=== PATIENT | female | born 1975 | race Caucasian/White ===

== ENCOUNTER 2022-10-15 10:03 | Inpatient (IN) ==
--- NOTE | 2022-09-24 14:22 | PAT Medication Instructions ---
Medication Instructions Date of Service September 24, 2022 Home Medications Bacillus coagulans 1 billion cell chewable tablet (Probiotic (B. coagulans)) 1 cell PO QAM celecoxib 200 mg capsule (Celebrex) 200 mg PO QAM cholecalciferol (vitamin D3) 125 mcg (5,000 unit) tablet (Vitamin D3) 125 mcg PO QAM fiber 1 cap PO QPM gabapentin 600 mg tablet 600 mg PO BID lisinopril 20 mg-hydrochlorothiazide 12.5 mg tablet 1 tab PO HS multivitamin 0.5 tab PO BID turmeric 400 mg capsule 400 mg PO QPM vitamin B complex 1 cap PO QAM ASK your surgeon for instructions celecoxib 200 mg capsule (Celebrex) 200 mg PO QAM STOP taking 2 weeks before surgery (or as soon as possible if surgery is within 2 weeks) turmeric 400 mg capsule 400 mg PO QPM DO NOT take the morning of surgery Bacillus coagulans 1 billion cell chewable tablet (Probiotic (B. coagulans)) 1 cell PO QAM cholecalciferol (vitamin D3) 125 mcg (5,000 unit) tablet (Vitamin D3) 125 mcg PO QAM multivitamin 0.5 tab PO BID vitamin B complex 1 cap PO QAM Take morning of surgery With a small sip of water, OTHERWISE NOTHING TO EAT OR DRINK AFTER MIDNIGHT: gabapentin 600 mg tablet 600 mg PO BID Take evening before surgery fiber 1 cap PO QPM gabapentin 600 mg tablet 600 mg PO BID lisinopril 20 mg-hydrochlorothiazide 12.5 mg tablet 1 tab PO HS multivitamin 0.5 tab PO BID Other Notes If you have any questions please call us at [phone] or [phone] or [phone] or [phone]
--- NOTE | 2022-10-01 11:10 | Anesthesiology Consultation ---
Date of Service October 01, 2022 Assessment & Plan (1) Encounter for pre-operative examination: - Covid screening: Per hearing specialist on 10/01/22: No known infectious disease contacts or current infectious disease symptoms in past 10 days. No COVID positive test result in the past 90 days noted. - Outpatient joint assessment: Pt currently scheduled for inpatient pathway. If surgeon requests review for outpatient joint pathway, patient is an acceptable candidate for outpatient joint program from anesthesia standpoint pending surgeon's office assessment that patient is motivated, has good support and completes Same Day Joint Program preop requirements. Chart Review Chart Review: Acceptable Risk for Surgery and Patient seen in Pre Admission Testing Teaching & Discussion Pre-Anesthesia Teaching/Discussion Notes: Instructed NPO after midnight before surgery,except medications with 15 cc of water. Medication instructions provided according to the PAT guidelines. History Surgery Operation Date: 10/15/22 07:45 Proposed Procedures p L4-S1 Decompression and Fusion - Larui Yang, Height/Weight Height: 5 ft 4.5 in Weight: 97.6 kg Allergies Allergy/AdvReac Type Severity Reaction Status Date / Time No Known Allergies Allergy Verified 09/24/22 08:15 Medications Home Medications Medication Instructions Recorded Confirmed Last Taken Bacillus coagulans 1 billion cell 1 cell PO QAM 09/24/22 09/24/22 Unknown chewable tablet (Probiotic (B. coagulans)) celecoxib 200 mg capsule (Celebrex) 200 mg PO QAM 09/24/22 09/24/22 Unknown cholecalciferol (vitamin D3) 125 125 mcg PO QAM 09/24/22 09/24/22 Unknown mcg (5,000 unit) tablet (Vitamin D3) fiber 1 cap PO QPM 09/24/22 09/24/22 Unknown gabapentin 600 mg tablet 600 mg PO BID 09/24/22 09/24/22 Unknown lisinopril 20 1 tab PO HS 09/24/22 09/24/22 Unknown mg-hydrochlorothiazide 12.5 mg tablet multivitamin 0.5 tab PO BID 09/24/22 09/24/22 Unknown turmeric 400 mg capsule 400 mg PO QPM 09/24/22 09/24/22 Unknown vitamin B complex 1 cap PO QAM 09/24/22 09/24/22 Unknown Past Medical History Medical History Arthritis Hearing deficit History of COVID-19 x2 Most recent 03/2021; symptoms resolved History of depression Hypertension Spinal stenosis Exercise / Class Metabolic Activity II 4-5 Yardwork/Stairs/Walk up hill Past Family History Family History Other No family history of adverse response to anesthesia Past Surgical History Surgical History H/O foot surgery left History of adenoidectomy History of bilateral tubal ligation History of ear surgery left ear "hole repaired" History of esophagogastroduodenoscopy (EGD) History of hysteroscopy [place] teeth removed Past Anesthesia History No Hx of Anesthesia Complications and No Family Hx of Anesthesia Complications History of PONV No Hx of PONV and No Hx of Motion Sickness Social History Smoking Status: Never smoker Do You Dip or Chew Tobacco: No Hx Alcohol Use: Yes Alcohol type: beer alcohol intake frequency: a few times a month substance use type: does not use Review of Systems Patient denies chest pain, shortness of breath, dyspnea on exertion, fever, chills, cough, wheezing, palpitations. Physical Exam Vital Signs VITALS BP 126/85 P 63 TEMP 97.7 SP02 99%RA RESP 18 PHYSICAL Full cervical extension range of motion. Full TMJ range of motion. TMD 3.5 finger breaths Mallampati Score 1 Dentition: intact, + crown Lungs: clear throughout to auscultation Cardiac: regular rate and rhythm, no murmurs noted Spine: normal Carotid arteries: negative bruit Extremities: no LE edema Lab Results Anesthesia Preop Results Results Anesthesia Widget: WBC 6.58 K/ul (4.8-10.8) 10/01/22 Hgb 13.2 g/dl (12.0-16.0) 10/01/22 Hct 37.3 % (37.0-47.0) 10/01/22 Plt 266 K/uL (130-400) 10/01/22 Na 140 mmol/L (136-145) 10/01/22 K 3.6 mmol/L (3.5-5.1) 10/01/22 Cl 107 mmol/L (98-107) 10/01/22 CO2 26 mmol/L (21-32) 10/01/22 BUN 13 mg/dl (6-23) 10/01/22 Creat 0.61 mg/dl (0.6-1.2) 10/01/22 Glucose Level 73 mg/dl (70-99(Fasting)) 10/01/22 PT 10.4 Seconds (9.0-12.0) 10/01/22 PTT 25.6 Seconds (21.0-31.0) 10/01/22 INR 0.9 (0.9-1.1) 10/01/22 Urine Color Dark Yellow 10/01/22 Urine Appearance Clear (Clear) 10/01/22 Urine pH 6.0 (4.5-7.5) 10/01/22 Urine Specific [place] 1.011 (1.000-1.030) 10/01/22 Urine Protein Negative (Negative) 10/01/22 Urine Glucose (UA) Negative (Negative) 10/01/22 Urine Ketones Negative (Negative) 10/01/22 Urine Blood 1+ (Negative) H 10/01/22 Urine Nitrite Negative (Negative) 10/01/22 Urine Bilirubin Negative (Negative) 10/01/22 Urine Urobilinogen Negative (Negative) 10/01/22 Urine Leukocyte Esterase Negative (Negative) 10/01/22 Urine WBC (Auto) 0 /hpf (0-5) 10/01/22 Urine RBC (Auto) 5-10 /hpf (0-4) H 10/01/22 Urine Hyaline Casts (Auto) 0 /lpf (0-5) 10/01/22 Urine Epithelial Cells (Auto) 5-10 /lpf (0-5) H 10/01/22 Urine Bacteria (Auto) Negative (Negative) 10/01/22 Blood Type A Positive 10/01/22 Antibody Screen NEGATIVE 10/01/22 Testing Electrocardiogram Date: 10/01/22 SB at 54bpm. "Normal ECG" Chest X-Ray Date: 10/01/22 FINDINGS: PA and lateral chest radiographs are obtained. No prior studies are available for comparison at the time of dictation. The cardiomediastinal silhouette is unremarkable. The lungs and pleural spaces are clear. There is no pneumothorax. The bony thorax appears intact. IMPRESSION: No active disease in the chest.
[~2022-10-15 10:03] MED LIST: ACETAMINOPHEN 500 MG TAB PO SCH; CeleBREX 200 MG CAP PO SCH; DexMEDEtomidine HCL IV 100 MCG/ML VIAL IV ONE; GABAPENTIN 900 MG DOSE PO SCH; LR 15ML/HR IV SCH; LR 60ML/HR IV SCH; ceFAZolin 2000MG 2,000 MG/15 ML SYR IV SCH
[2022-10-15] MEDS ORDERED: KETAMINE 50 MG/5 ML SYRINGE ONE (10:31)
[2022-10-15] MEDS ORDERED: fentaNYL citrate PF 100 MCG/2 ML VIAL ONE (10:31)
[2022-10-15] MEDS ORDERED: MIDAZOLAM HCL 1 MG/ML 2ML VIAL ONE (10:31)
[2022-10-15] MEDS ORDERED: ePHEDrine sulfate 50 MG/ML AMP IV PRN (10:55)
[2022-10-15] MEDS ORDERED: ATROPINE SULFATE 0.1 MG/ML 10ML SYR IV PRN (10:55)
[2022-10-15] MEDS ORDERED: ONDANSETRON INJ 2 MG/ML 2 ML VIAL IV PRN ×2 (10:55→16:20)
--- NOTE | 2022-10-15 11:54 | History & Physical Bridge Note ---
Date of Service October 15, 2022 History & Physical Bridge Note I have examined the patient, reviewed the History & Physical and in the interval since the performance of the History & Physical I have noted the following changes of clinical significance: no changes noted
--- NOTE | 2022-10-15 11:56 | History & Physical Report ---
Date of Service October 15, 2022 Assessment & Plan (1) Neurogenic claudication due to lumbar spinal stenosis: Plan: L4-S1 decompression and fusion History of Present Illness Chief Complaint: Back and leg pain Primary Care Provider: Evangelina Butts This is a 46-year-old female presents with chronic persistent back and leg pain after failing course of nonoperative care she is here for surgical invention. Allergies Allergy/AdvReac Type Severity Reaction Status Date / Time No Known Allergies Allergy Verified 10/15/22 10:26 Home Medications Medication Instructions Recorded Confirmed Type Bacillus coagulans 1 billion cell 1 cell PO QAM 09/24/22 10/15/22 History chewable tablet (Probiotic (B. coagulans)) celecoxib 200 mg capsule (Celebrex) 200 mg PO QAM 09/24/22 10/15/22 History cholecalciferol (vitamin D3) 125 125 mcg PO QAM 09/24/22 10/15/22 History mcg (5,000 unit) tablet (Vitamin D3) fiber 1 cap PO QPM 09/24/22 10/15/22 History gabapentin 600 mg tablet 600 mg PO BID 09/24/22 10/15/22 History lisinopril 20 1 tab PO HS 09/24/22 10/15/22 History mg-hydrochlorothiazide 12.5 mg tablet multivitamin 0.5 tab PO BID 09/24/22 10/15/22 History turmeric 400 mg capsule 400 mg PO QPM 09/24/22 10/15/22 History vitamin B complex 1 cap PO QAM 09/24/22 10/15/22 History Past Med/Surg History Medical History Arthritis Hearing deficit History of COVID-19 x2 Most recent 03/2021; symptoms resolved History of depression Hypertension Spinal stenosis Surgical History H/O foot surgery left History of adenoidectomy History of bilateral tubal ligation History of ear surgery left ear "hole repaired" History of esophagogastroduodenoscopy (EGD) History of hysteroscopy [place] teeth removed Family History Other No family history of adverse response to anesthesia Social History Smoking Status: Never smoker Second Hand Exposure: No; Do You Dip or Chew Tobacco: No; Hx Alcohol Use: Yes Alcohol type: beer Preferred Language: French Nurse Head Required: No Beliefs That Will Affect Care: None Current Living Situation: Family Current Living Situation Comment: boyfriend and 3 children Feels Safe at Home: Yes Safety Concerns: Feels Safe At This Time Assistive Devices: Contacts, Glasses and Hearing Aid - Bilateral Assistive Devices Comment: reading glasses Physical Exam Physical Exam: Patient is alert and oriented Heart regular rhythm Lungs clear Results & Data Results & Data Vital Signs (Past 12 Hours) Vital Signs Temp Pulse Resp BP Pulse Ox O2 Del Method 10/15/22 10:21 36.5 C 69 20 152/79 H 95 Room Air
[2022-10-15] MEDS ORDERED: ceFAZolin 330 MG/ML 1 GM VIAL ONE (12:14)
[2022-10-15] MEDS ORDERED: BUPIVACAINE/EPINEPHRINE 0.25% 1:200,000 30 ML VIAL ONE (12:14)
[2022-10-15] MEDS ORDERED: HYDROmorphone INJ 2 MG/ML SYR/VIAL ONE (13:00)
[2022-10-15] MEDS ORDERED: ROCURONIUM BROMIDE 10 MG/ML 5 ML VIAL IV ONE (13:02)
[2022-10-15] MEDS ORDERED: FLOSEAL HEMOSTATIC MATRIX 10ML TOP ONE (13:22)
[2022-10-15] MEDS ORDERED: ePHEDrine sulfate 50 MG/ML SYR ONE (14:06)
[2022-10-15] MEDS ORDERED: ePHEDrine sulfate 50 MG/ML AMP ONE (14:08)
[2022-10-15] MEDS ORDERED: DEXAMETHASONE SOD INJ 4 MG/ML VIAL ONE (14:23)
[2022-10-15] MEDS ORDERED: ONDANSETRON INJ 2 MG/ML 2 ML VIAL ONE (14:23)
[2022-10-15] MEDS ORDERED: SUGAMMADEX SODIUM 200 MG/2 ML VIAL IV ONE (14:23)
--- NOTE | 2022-10-15 14:42 | Operative Report ---
Post Operative Report Pre & Post Diagnosis Operation Date: 10/15/22 11:25 Pre-Op Diagnosis: Neurogenic claudication due to lumbar spinal stenosis Post-Op Diagnosis: Neurogenic claudication due to lumbar spinal stenosis I identified the patient and participated in the time-out.: Yes Procedure Operation Date: 10/15/22 11:25 Actual Procedures 1. Lumbar decompression bilaterally facetectomies and foraminotomies L3-L4, L4- 5 and L5-S1. #2 posterior spinal fusion L4-5 L5-S1. #3 placed posterior instrumentation L4-S1. #4 interbody fusion L4-L5 L5-S1. #5 placement Spira 14 x 26 mm at L4-5 and 13 x 26 mm at L5-S1. #6 placement locally harvested morselized autograft and posterior gutters. #7 placement of I factor amount of V toss in the interbody space and posterior gutters. Surgeon Lauri Yang, Bulldozer Engineer Jono Perez Estimated Blood Loss 200 ([) Findings See Below Patient is 5 foot 4 weighing over 96 kg with a BMI in excess of 35. Patient's body habitus did contribute to significant technical difficulty requiring her deeper retractors longer instruments in order to perform her procedure. This at least 50% increased operative time. Specimens none Indications This is a 47-year-old female presents above-mentioned diagnosis after failed course of nonoperative care she is here for surgical intervention. Description of Procedure Patient was met with identified informed consent obtained. Patient was then taken to the operative suite underwent patient placed in a prone position on the [place] table top Bucky frame. All bony prominences well-padded eyes inspected to ensure no external pressure placed upon the. This point the lumbar spine was prepped and draped in a sterile fashion. Sharp dissection with assistance of Bovie cautery performed down to expose the lamina transverse processes of L4-L5 and the sacral ala bilaterally. From caudal cephalad fashion complete laminectomy L5 L4 partial laminectomy of L3 was performed including bilateral medial facetectomies and foraminotomies addressing severe spinal stenosis. Pedicle screws were then placed in L4-L5 and S1 levels bilaterally with assistance of fluoroscopy and properly sized eamon placed. By way of a transforaminal approach on the left complete discectomy of L5-S1 was performed endplates curetted to subcortical bleeding bone and a 13 x 26 mm Spira cage with I factor tapped in position. Then proceeded L4-5 and again by a transforaminal approach on the left pleat discectomy performed endplates guided to subcortically bone and a 14 x 26 mm Spira cage with I factor tapped in position. The rods then compressed locked in position bilaterally. The transverse processes of L4-5 and sacral ala burred to subcortically and bone. I factor combined with the test and locally harvested morselized autograft was then placed in the posterior gutters. 15 round DEXTER drain inserted. The incision was then closed with 1 Vicryl the fascia 2-0 Vicryl subcutaneously and 4 Monocryl for final skin closure. Steri-Strips and sterile dressing placed. Patient waken taken to PACU stable condition. Please note spinal cord monitoring was utilized at the procedure no changes noted. Lastly Jono Perez was present at the entire surgery and while the patient positioning complex portion of the surgery and final skin closure. I attest to the content of the Intraoperative Record and any orders documented therein. Any exceptions are noted below.
--- NOTE | 2022-10-15 14:49 | Fluoroscopy Report ---
INTRAOPERATIVE RADIOGRAPHS CLINICAL HISTORY: L4-S1 spinal fusion. Fluoro time: 30 seconds Ka,r: 29.07 mGy FINDINGS: 2 spot fluoroscopic views of the lumbar spine are presented. There has been discectomy at L 4-L5 and L5-S1 with laminectomy and posterior fusion from L4-S1. Interpedicular screws are present at all levels. The orthopedic hardware appears intact. IMPRESSION: Intraoperative images from lumbar spinal fusion surgery as above. Electronically signed by: Tre Vidales M.D. 10/15/2022 2:47 PM
[2022-10-15] MEDS: HYDROmorphone INJ 1 MG/ML SYRINGE IV PRN ×6 (15:17→15:44)
--- NOTE | 2022-10-15 16:03 | Anesthesiology Progress Note ---
Date of Service October 15, 2022 Anesthesia Post Procedure Vital Signs Vital Signs: Temp Pulse Pulse Resp BP Pulse Ox O2 Del Method 10/15/22 15:55 75 16 110/66 98 Nasal Cannula 10/15/22 15:45 77 14 113/64 99 Nasal Cannula 10/15/22 15:35 74 14 113/65 98 Room Air 10/15/22 15:25 73 14 121/83 100 Oxymask 10/15/22 15:15 78 16 107/71 100 Oxymask 10/15/22 15:06 97.7 F 87 14 108/70 100 Oxymask 10/15/22 10:21 97.7 F 69 20 152/79 H 95 Room Air O2 Flow Rate 10/15/22 15:55 2 10/15/22 15:45 2 10/15/22 15:35 10/15/22 15:25 3 10/15/22 15:15 3 10/15/22 15:06 5 10/15/22 10:21 Pain Intensity Back: Pain Intensity: 5 Transfer of Care Handoff Completed per policy Notes Mental Status: alert / awake / arousable and participated in evaluation Patient Amnestic to Procedure: Yes Nausea / Vomiting: adequately controlled Pain: adequately controlled Airway Patency, RR, SpO2: stable & adequate BP & HR: stable & adequate Hydration State: stable & adequate Anesthetic Complications: no major complications apparent and Pt Satisfied with anesthetic care
[2022-10-15] MEDS ORDERED: HYDROmorphone INJ 1 MG/ML SYRINGE IV PRN (16:20)
[2022-10-15] MEDS ORDERED: DO NOT ADMINISTER FLU VACCINE PRN (16:20)
[2022-10-15] MEDS ORDERED: traMADol HCL 50 MG TABLET PO PRN (16:20)
[2022-10-15] MEDS ORDERED: METOCLOPRAMIDE HCL INJ 5 MG/ML 2 ML VIAL IV PRN (16:20)
[2022-10-15] MEDS ORDERED: FAMOTIDINE 20 MG TAB PO PRN (16:20)
[2022-10-15] MEDS ORDERED: LORazepam 2 MG/1 ML VIAL IV PRN (16:20)
[2022-10-15] MEDS ORDERED: NALOXONE HCL 0.4 MG/1 ML VIAL/CARP IV PRN (16:20)
[2022-10-15] MEDS ORDERED: hydrOXYzine HCl 25 MG TAB PO PRN (16:20)
[2022-10-15] MEDS ORDERED: DO NOT ADMINISTER PNEUMOCOCCAL VACCINE PRN (16:20)
[2022-10-15] MEDS ORDERED: MAGNESIUM HYDROXIDE SUSP 30 ML UDC PO PRN (16:20)
[2022-10-15] MEDS ORDERED: ALUMINUM/MAGNESIUM SUSP 30 ML UDC PO PRN (16:20)
[2022-10-15] MEDS ORDERED: PROMETHAZINE HCL 12.5 MG in SODIUM CHLORIDE 0.9% 50 ML IV PRN (16:20)
[2022-10-15] MEDS ORDERED: ACETAMINOPHEN 1,000 MG/100 ML VIAL IV PRN (16:20)
[2022-10-15] MEDS ORDERED: ONDANSETRON 4 MG OD TAB PO PRN (16:20)
[2022-10-15] MEDS: LACTATED RINGER'S 1,000 ML IV SCH ×2 (16:20→23:30)
[2022-10-15] MEDS ORDERED: bisacodyL 10 MG SUPP PR PRN (16:20)
[2022-10-15] MEDS ORDERED: LORazepam 0.5 MG TAB PO PRN (16:20)
[2022-10-15] MEDS ORDERED: HYDROmorphone INJ 0.5 MG/0.5 ML SYR IV PRN (16:20)
[2022-10-15] MEDS ORDERED: SOD PHOSPHATE/SOD BIPHOSPHATE ENEMA 132 ML BTL PR PRN (16:20)
[2022-10-15] MEDS ORDERED: diphenhydrAMINE Capsule 25 MG CAP PO PRN (16:20)
--- NOTE | 2022-10-15 18:39 | Hospitalist Consultation ---
Date of Consultation October 15, 2022 Assessment & Plan (1) Neurogenic claudication due to lumbar spinal stenosis: POD#0 L4-S1 decompression and fusion by Dr. Yang Activity and wound care orders as per ortho Pain control with bowel regimen PT/OT Monitor H/H for acute blood loss anemia and transfuse blood products PRN, preop Hgb 13.2 EBL 200 cc (2) Hypertension: BP controlled, continue home lisinopril/HCTZ --check renal functions with a.m. labs, preop creatinine 0.6 DVT PROPHYLAXIS TEDs/SCDs as per spine Ortho Patient seen in collaboration with Dr. Wong. Thank you for this consultation. We will follow the patient with you during their hospital stay. You can reach a member of the [facility] 27/09 via the [facility] role in [employer]. Supervising Physician Co-Signing Physician Notes Pt seen and examined by myself, Page Wong MD on the day of service. Care was coordinated with KATELYNN Lynn. Please refer to her note for additional information. 47yoF s/p lumbar decompression and fusion with consult for chronic medical problems. Stable, pain controlled. Otherwise as above. History of Present Illness Reason for Consultation: Postop medical management Requesting Physician: Dr. Yang Attending Physician: Lauri Yang DO History of Present Illness 47-year-old female with PMH HTN, and other problems listed below who is s/p L4- S1 decompression and fusion by Dr. Yang. Postoperatively, the patient is doing well. She reports her pain is well controlled. She denies numbness, tingling, weakness to lower extremities. No chest pain or shortness of breath. Denies abdominal pain and nausea. No lightheadedness or dizziness. Del Cid catheter is in place draining clear yellow urine. Allergies Allergy/AdvReac Type Severity Reaction Status Date / Time No Known Allergies Allergy Verified 10/15/22 10:26 Home Medications Medication Instructions Recorded Confirmed Type Bacillus coagulans 1 billion cell 1 cell PO QAM 09/24/22 10/15/22 History chewable tablet (Probiotic (B. coagulans)) celecoxib 200 mg capsule (Celebrex) 200 mg PO QAM 09/24/22 10/15/22 History cholecalciferol (vitamin D3) 125 125 mcg PO QAM 09/24/22 10/15/22 History mcg (5,000 unit) tablet (Vitamin D3) fiber 1 cap PO QPM 09/24/22 10/15/22 History gabapentin 600 mg tablet 600 mg PO BID 09/24/22 10/15/22 History lisinopril 20 1 tab PO HS 09/24/22 10/15/22 History mg-hydrochlorothiazide 12.5 mg tablet multivitamin 0.5 tab PO BID 09/24/22 10/15/22 History turmeric 400 mg capsule 400 mg PO QPM 09/24/22 10/15/22 History vitamin B complex 1 cap PO QAM 09/24/22 10/15/22 History oxycodone 5 mg tablet 5 mg PO Q6H PRN pain #30 tabs 10/15/22 Rx tramadol 50 mg tablet 50 mg PO Q6H PRN pain, moderate 10/15/22 Rx #30 tabs Patient History Medical History Arthritis Hearing deficit History of COVID-19 x2 Most recent 03/2021; symptoms resolved History of depression Hypertension Spinal stenosis Surgical History H/O foot surgery left History of adenoidectomy History of bilateral tubal ligation History of ear surgery left ear "hole repaired" History of esophagogastroduodenoscopy (EGD) History of hysteroscopy [place] teeth removed Family History Other No family history of adverse response to anesthesia Social History Smoking Status: Never smoker Second Hand Exposure: No; Do You Dip or Chew Tobacco: No; Hx Alcohol Use: Yes Alcohol type: beer Preferred Language: Divehi Keeler Polygraph Operator Required: No Beliefs That Will Affect Care: None Current Living Situation: Family Current Living Situation Comment: boyfriend and 3 children Feels Safe at Home: Yes Safety Concerns: Feels Safe At This Time Assistive Devices: Contacts, Glasses and Hearing Aid - Bilateral Assistive Devices Comment: reading glasses Review of Systems Review of Systems: ROS per HPI, all other systems reviewed and negative Physical Exam Constitutional: WD/WN, vitals as above Eyes: PERRL, conjunctivae normal, anicteric sclerae ENMT: external ear and nose normal, oropharynx normal Respiratory: normal respiratory effort, lungs clear to auscultation Cardiovascular: Rate/Rhythm: regular rate and regular rhythm Vessels: normal peripheral pulses Extremities: no edema Gastrointestinal (Abdomen): normal bowel sounds, soft, nontender, no hepatospl enomegaly Musculoskeletal: no cyanosis or clubbing, extremities motor strength 5/5 S/p back surgery, pedal pushes and pulls strong bilaterally Skin: no rashes, warm and dry Neurologic: PERRL, EOMI, accommodation nl, no face palsy, no dysarthria Psychiatric: A+Ox3, euthymic affect Results & Data Results & Data Vital Signs (Past 12 Hours) Vital Signs Temp Pulse Pulse Resp BP Pulse Ox O2 Del Method 10/15/22 18:11 36.4 C L 89 16 114/75 100 Nasal Cannula 10/15/22 17:27 36.4 C L 76 16 112/76 100 Nasal Cannula 10/15/22 16:50 36.3 C L 77 14 110/71 96 Nasal Cannula 10/15/22 16:15 Nasal Cannula 10/15/22 16:15 36.6 C 77 14 105/69 99 Nasal Cannula 10/15/22 16:05 73 14 117/70 100 Nasal Cannula 10/15/22 15:55 75 16 110/66 98 Nasal Cannula 10/15/22 15:45 77 14 113/64 99 Nasal Cannula 10/15/22 15:35 74 14 113/65 98 Room Air 10/15/22 15:25 73 14 121/83 100 Oxymask 10/15/22 15:15 78 16 107/71 100 Oxymask 10/15/22 15:06 36.5 C 87 14 108/70 100 Oxymask 10/15/22 10:21 36.5 C 69 20 152/79 H 95 Room Air O2 Flow Rate 10/15/22 18:11 2 10/15/22 17:27 2 10/15/22 16:50 2 10/15/22 16:15 2 10/15/22 16:15 2 10/15/22 16:05 2 10/15/22 15:55 2 10/15/22 15:45 2 10/15/22 15:35 10/15/22 15:25 3 10/15/22 15:15 3 10/15/22 15:06 5 10/15/22 10:21 Laboratory Results Preoperative CBC and BMP reviewed
[2022-10-15] MEDS: oxyCODONE HCL IR 5 MG TAB (IMMEDIATE RELEASE) PO PRN ×2 (18:53→23:30)
[2022-10-15] MEDS ORDERED: NON-FORMULARY MEDICATION (Fiber Capsule) PO SCH (21:00)
[2022-10-15] MEDS: ACETAMINOPHEN 500 MG TAB PO PRN (21:30)
[2022-10-15] MEDS: ceFAZolin 2000MG 2,000 MG/15 ML SYR IV SCH (21:31)
[2022-10-15] MEDS: GABAPENTIN 600 MG TAB PO SCH (21:34)
[2022-10-15] MEDS: LISINOPRIL/HCTZ 20/12.5MG 1 TAB TAB PO SCH (21:34)
[2022-10-15] MEDS: DOCUSATE SODIUM/SENNA 50/8.6MG TAB PO SCH (21:36)
[2022-10-16] MEDS: oxyCODONE HCL IR 5 MG TAB (IMMEDIATE RELEASE) PO PRN ×4 (04:35→21:11)
[2022-10-16] MEDS: ceFAZolin 2000MG 2,000 MG/15 ML SYR IV SCH (04:36)
[2022-10-16] MEDS: POLYETHYLENE (MIRALAX) 17 GM PACK PO SCH ×4 (05:26→23:08)
[2022-10-16] MEDS: LACTATED RINGER'S 1,000 ML IV SCH (05:38)
[2022-10-16 06:08] LABS: Basophils # (auto) 0.01 K/uL (0-0.2); Basophils % (auto) 0.1 %; Eosinophils # (auto) 0.02 K/uL (0-0.50); Eosinophils % (auto) 0.2 %; Hematocrit (blood only) 31.8 % (37.0-47.0); Hemoglobin 11.1 g/dl (12.0-16.0); Immature Granulocytes # (auto) 0.05 K/uL (0.01-0.20); Immature Granulocytes % (auto) 0.4 %; Lymphocytes # (auto) 2.27 K/uL (1.2-3.4); Lymphocytes % (auto) 19.8 %; Mean Corpuscular Hemoglobin 32.7 pg (25.0-34.0); Mean Corpuscular Hgb Conc 34.9 g/dL (32.0-36.0); Mean Corpuscular Volume 93.8 fL (80.0-100.0); Mean Platelet Volume 10.5 fL (9.4-12.4); Monocytes # (auto) 0.95 K/uL (0.11-0.59); Monocytes % (auto) 8.3 %; Neutrophils # (auto) 8.16 K/uL (1.40-6.50); Neutrophils % (auto) 71.2 %; Platelet Count 252 K/uL (130-400); RDW Coefficient of Variation 12.1 % (11.5-14.5); RDW Standard Deviation 42.1 fL (36.4-46.3); Red Blood Count 3.39 M/uL (4.20-5.40); White Blood Count 11.46 K/ul (4.8-10.8)
[2022-10-16 06:27] LABS: BUN Creatinine Ratio 14.3 (10-20); Calcium 8.9 mg/dl (8.6-10.3); Creatinine Clr Calc Pharmacy 144.3 ml/min; Est GFR (African American) 130.5 ml/min; Est GFR (Non-African American) 112.6 ml/min; Potassium 3.8 mmol/L (3.5-5.1)
--- NOTE | 2022-10-16 07:32 | Orthopedic Progress Note ---
Date of Service October 16, 2022 Assessment & Plan (1) Neurogenic claudication due to lumbar spinal stenosis: Plan: Patient is doing well postoperative day #1. Were going to continue with GI DVT prophylaxis as well as pain control measures. We can have her ambulate with physical therapy today. All goes well today and her drainage slows down we would consider letting her go home tomorrow. Admission and Anticipated Discharge Date Admission Date: October 15, 2022 Subjective Patient seen bedside in room 309. She is doing well today. Her pain is well controlled. She is not having any joan radicular complaints she has not had a bowel movement. She has been up and walking. She denies any other numbness, tingling, or paresthesias. Physical Exam Physical Exam: On exam she is alert and oriented. She is in no apparent distress. Her st rength and sensation are both intact her abdomen soft and nontender. Her calves are supple and nontender. Cardiovascular exam reveals no gross abnormalities. Visual perry are grossly intact. Results & Data Vital Signs (Past 12 Hours) Vital Signs Temp Pulse Resp BP Pulse Ox O2 Del Method 10/16/22 07:27 36.9 C 93 H 18 112/69 96 Room Air 10/16/22 03:42 36.7 C 84 18 116/60 98 Room Air 10/15/22 21:30 Room Air 10/15/22 23:07 36.8 C 88 18 118/71 96 Room Air 10/15/22 21:14 79 107/70
[2022-10-16] MEDS: VITAMIN B COMPLEX TAB PO SCH (08:48)
[2022-10-16] MEDS: MULTIVITAMIN TAB PO SCH (08:48)
[2022-10-16] MEDS: CHOLECALCIFEROL 5,000 UNITS 125 MCG TAB PO SCH (08:48)
[2022-10-16] MEDS: GABAPENTIN 600 MG TAB PO SCH ×2 (08:48→19:46)
[2022-10-16] MEDS: dexAMETHasone 6 MG in SYRINGE 0 ML IV SCH (08:49)
[2022-10-16] MEDS: ACETAMINOPHEN 500 MG TAB PO PRN (10:21)
--- NOTE | 2022-10-16 14:46 | Hospitalist Progress Note ---
Date of Service October 16, 2022 Assessment & Plan (1) Neurogenic claudication due to lumbar spinal stenosis: Plan: POD#1 L4-S1 decompression and fusion by Dr. Yang Activity and wound care orders as per ortho Pain control with bowel regimen PT/OT Monitor H/H for acute blood loss anemia and transfuse blood products PRN, preop Hgb 13.2 EBL 200 cc (2) Hypertension: Plan: BP controlled, continue home lisinopril/HCTZ . DVT PROPHYLAXIS TEDs/SCDs as per spine Ortho Admission and Anticipated Discharge Date Admission Date: October 15, 2022 Subjective Patient seen and examined at bedside as a follow-up of medical management for sp inal surgery for neurogenic claudication due to spinal stenosis. Patient was sitting up in chair, on room air, NAD, reports improvement in LLE radicular pain, reports bearable operative site pain, reports eating okay, has normal bowel, is moving gas, denies any other problems. Physical Exam Physical Exam: GENERAL: Alert and oriented x3. NAD, on RA. HEENT: No pallor, no icterus. Pupils equal, round and reactive to light. Oral mucosa moist. NECK: No JVD, no neck masses. HEART: S1 and S2 heard. Regular rate and rhythm. No murmur, no gallop. RESPIRATORY SYSTEM: Normal AP diameter. No accessory muscle use. No wheezing, no crackles. ABDOMEN: Soft, bowel sounds present, nontender, no distention. CENTRAL NERVOUS SYSTEM: No facial droop. Speech is clear. Obeys simple commands. Moves extremities. EXTREMITIES: No edema, no erythema seen. Low back with clean dressing without soakage. DEXTER drain with moderate serosanguineous collection noted. Results & Data Results & Data Vital Signs (Past 12 Hours) Vital Signs Temp Pulse Resp BP Pulse Ox O2 Del Method 10/16/22 11:55 96 10/16/22 07:27 36.9 C 93 H 18 112/69 96 Room Air 10/16/22 03:42 36.7 C 84 18 116/60 98 Room Air
[2022-10-16] MEDS: LISINOPRIL/HCTZ 20/12.5MG 1 TAB TAB PO SCH (19:47)
[2022-10-16] MEDS: DOCUSATE SODIUM/SENNA 50/8.6MG TAB PO SCH (19:47)
[2022-10-17] MEDS: oxyCODONE HCL IR 5 MG TAB (IMMEDIATE RELEASE) PO PRN ×4 (04:22→22:34)
[2022-10-17] MEDS: POLYETHYLENE (MIRALAX) 17 GM PACK PO SCH ×3 (04:23→17:39)
[2022-10-17 06:00] LABS: Hemoglobin 11.2 g/dl (12.0-16.0); Mean Corpuscular Hemoglobin 33.5 pg (25.0-34.0); Mean Corpuscular Volume 95.8 fL (80.0-100.0); Mean Platelet Volume 10.2 fL (9.4-12.4); Platelet Count 220 K/uL (130-400); RDW Coefficient of Variation 12.6 % (11.5-14.5); RDW Standard Deviation 43.8 fL (36.4-46.3); Red Blood Count 3.34 M/uL (4.20-5.40); White Blood Count 11.14 K/ul (4.8-10.8)
--- NOTE | 2022-10-17 07:17 | Orthopedic Progress Note ---
Date of Service October 17, 2022 Assessment & Plan (1) Neurogenic claudication due to lumbar spinal stenosis: Plan: Patient is doing well postop day #2. She did have some issues with her blood pressure yesterday. Like to keep her today and make sure her drainage slows down. We will continue with hydration measures. If she continues to get lightheaded orthostatic blood pressures would be reasonable. We will see her tomorrow and hopefully discharge her to home. Admission and Anticipated Discharge Date Admission Date: October 15, 2022 Subjective Patient was seen bedside in room 309. She is doing well today. She had issues yesterday with her blood pressure. When she went to stand with physical therapy she got lightheaded. She is doing better this morning. She is tolerating p.o. well. She denies any other numbness, tingling, paresthesias Physical Exam Physical Exam: On exam the patient is alert and oriented. Her strength and sensation are both intact her DEXTER drain is in place and she has put out 60 on the last shift 45 on the previous. Her abdomen soft nontender calves are supple nontender cardiovascular exam reveals no gross abnormalities. Her gait is stable. Results & Data Vital Signs (Past 12 Hours) Vital Signs Temp Pulse Resp BP Pulse Ox O2 Del Method 10/17/22 06:57 36.8 C 80 18 106/71 98 Room Air 10/16/22 19:41 36.7 C 88 18 121/80 98 Room Air
[2022-10-17] MEDS: ACETAMINOPHEN 500 MG TAB PO PRN ×2 (07:47→17:39)
[2022-10-17] MEDS: VITAMIN B COMPLEX TAB PO SCH (08:29)
[2022-10-17] MEDS: CHOLECALCIFEROL 5,000 UNITS 125 MCG TAB PO SCH (08:29)
[2022-10-17] MEDS: MULTIVITAMIN TAB PO SCH (08:29)
[2022-10-17] MEDS: dexAMETHasone 6 MG in SYRINGE 0 ML IV SCH (08:29)
[2022-10-17] MEDS: GABAPENTIN 600 MG TAB PO SCH ×2 (08:29→22:34)
--- NOTE | 2022-10-17 12:53 | Hospitalist Progress Note ---
Date of Service October 17, 2022 Assessment & Plan (1) Neurogenic claudication due to lumbar spinal stenosis: Plan: POD#2 L4-S1 decompression and fusion by Dr. Yang Activity and wound care orders as per ortho Pain control with bowel regimen PT/OT Monitor H/H for acute blood loss anemia and transfuse blood products PRN, preop Hgb 13.2 EBL 200 cc (2) Hypertension: Plan: BP controlled, continue home lisinopril/hold HCTZ for few days. Low normal BP here. DVT PROPHYLAXIS TEDs/SCDs as per spine Ortho Admission and Anticipated Discharge Date Admission Date: October 15, 2022 Subjective Patient seen and examined at bedside as a follow-up of medical management for spinal surgery for neurogenic claudication due to spinal stenosis. Patient was sitting up in chair, on room air, NAD, reports improvement in LLE radicular pain, reports bearable operative site pain, reports eating okay, has not moved bowel, is moving gas, denies any other problems. While working w/ PT yesterday, pt was transiently lightheaded which improved w/ gatorade. Can use pedialyte solution which might me more effective. Ortho vitals obtained today are negative. Pt has no further such complaints today. Physical Exam Physical Exam: GENERAL: Alert and oriented x3. NAD, on RA. HEENT: No pallor, no icterus. Pupils equal, round and reactive to light. Oral mucosa moist. NECK: No JVD, no neck masses. HEART: S1 and S2 heard. Regular rate and rhythm. No murmur, no gallop. RESPIRATORY SYSTEM: Normal AP diameter. No accessory muscle use. No wheezing, no crackles. ABDOMEN: Soft, bowel sounds present, nontender, no distention. CENTRAL NERVOUS SYSTEM: No facial droop. Speech is clear. Obeys simple commands. Moves extremities. EXTREMITIES: No edema, no erythema seen. Low back with clean dressing without soakage. DEXTER drain with minimal serosanguineous collection noted. Results & Data Results & Data Vital Signs (Past 12 Hours) Vital Signs Temp Pulse Resp BP Pulse Ox O2 Del Method 10/17/22 08:04 103/68 10/17/22 06:57 36.8 C 80 18 106/71 98 Room Air
[2022-10-17] MEDS ORDERED: lisinopril 20 MG TAB PO SCH (21:00)
[2022-10-17] MEDS: DOCUSATE SODIUM/SENNA 50/8.6MG TAB PO SCH (22:33)
[2022-10-18] MEDS: POLYETHYLENE (MIRALAX) 17 GM PACK PO SCH ×2 (00:05→05:41)
[2022-10-18] MEDS: oxyCODONE HCL IR 5 MG TAB (IMMEDIATE RELEASE) PO PRN (03:06)
[2022-10-18] MEDS: ACETAMINOPHEN 500 MG TAB PO PRN (07:37)
[2022-10-18] MEDS: GABAPENTIN 600 MG TAB PO SCH (07:39)
[2022-10-18] MEDS: MULTIVITAMIN TAB PO SCH (07:39)
[2022-10-18] MEDS: dexAMETHasone 6 MG in SYRINGE 0 ML IV SCH (07:39)
[2022-10-18] MEDS: VITAMIN B COMPLEX TAB PO SCH (07:40)
[2022-10-18] MEDS: CHOLECALCIFEROL 5,000 UNITS 125 MCG TAB PO SCH (07:40)
--- NOTE | 2022-10-18 10:37 | Discharge Summary ---
Date of Service October 18, 2022 Admission HPI Per Admitting Provider This is a 46-year-old female presents with chronic persistent back and leg pain after failing course of nonoperative care she is here for surgical invention. Principal Diagnosis Lumbar spinal stenosis with neurogenic claudication Discharge Data Allergies Allergy/AdvReac Type Severity Reaction Status Date / Time No Known Allergies Allergy Verified 10/15/22 10:26 Consultations 10/15/22 16:20 Consult Hospitalist Routine Procedures Performed Operation Date: 10/15/22 11:25 Actual Procedures p L4-S1 Decompression and Fusion, Spinal Cord Monitoring(Bilateral) - Lauri Yang DO Ordered Studies 10/15/22 11:25 FL lumbar spine 2-3V Routine Hospital Course (1) Neurogenic claudication due to lumbar spinal stenosis: Patient 1 lumbar impression fusion tolerated as well as negative orthopedic for postop lipid postop and when she was up and ambulating progress postop day #2 postop day #3 pain was well controlled extract testing DEXTER drain decreasing probably. Subsidy discharged home. Discharge orders instructions from the chart for further review. Total Time Total Time Spent Total Time Spent (In Minutes): 20 minutes Discharge Plan Discharge Items Patient Disposition: Home - Self-Care Reason For Visit: POSTOP Discharge Diagnosis: Lumbar spinal stenosis with neurogenic claudication Activity: As commented below Non-emergency contact: Primary Care Provider Call non-emergency contact if: you have any medication questions Follow-up/Referrals: Evangelina Butts M.D. [Primary Care Provider] - Diet: Regular Addtl Attending Provider Instructions: ACTIVITY RECOMMENDATIONS: SELF CARE INSTRUCTIONS AFTER THORACIC/LUMBAR FUSIONS 1. You may walk to your tolerance. It is good exercise for your legs and back. Expect some back and intermittent leg aches and pains. 2. You may perform "counter-top" level activities (make a sandwich, reymundo with a project, etc.). 3. No bending or lifting of more than 10 pounds or back twisting of any nature (roll like a log when turning in bed). 4. You may ride in a car for 20-30 minutes at a time. No driving until after your first visit with your doctor. 5. Frequent changes of position and restricting sitting to 30 minutes at a time will help limit the amount of back spasms and stiffness you may experience. 6. You may discontinue the use of ambulatory aids (cane, crutches, etc.) once your strength and confidence allow. 7. You may machine taper the shower and let water strike your incision when you arrive home at least once daily. Do not take a tub bath, sit in a hot tub or go into a swimming pool until after your first recheck in the office. SPECIAL CARE INSTRUCTIONS: VERY IMPORTANT TO READ AND REVIEW A. Your surgical incision has been closed with a cosmetic suture under the skin that will dissolve in about 6 weeks. In 14 days, you can use a pair of clean scissors and cut the suture that is left outside of the skin at the ends of your incision. 1. The small skin tapes can be removed 7 days after surgery if they have not fallen off by that point. 2. You may keep the wound open to air as much as possible to promote healing after post-op day number 5 unless told otherwise by your doctor. 3. If you think the wound looks like it is becoming infected (redness or worsening drainage) and/or you are experiencing fever, chill or worsening back pain and muscle spasms, contact the office so that we may evaluate you as soon as possible. B. Complications are uncommon, but please contact us if you have any signs or symptoms of: 1. wound infection (fever higher than 102.5 degrees F, redness, separation of wound, drainage, or increasing pain from the incision) 2. blood clots in legs (pain, swelling, redness and warmth in legs) 3. urinary tract infection (fever higher than 102.5 degrees F, burning upon urination or increased frequency of urination) 4. nerve problems (inability to walk on your toes or heels, numbness, loss of bowel or bladder control) 5. any other symptoms that concern you C. Please call the office at if you have any concerns or questions about your operation or recovery. D. No smoking! Smoking drastically decreases the chance of a solid fusion. E. Do not take any anti-inflammatory medications (Indocin, Advil, Motrin, Aspirin, Naprosyn, etc.) as these may inhibit the chance of a solid fusion. Tylenol is okay to take for pain. MANAGING PAIN AFTER SPINAL SURGERY 1. Narcotic medication is intended for short-term use and will be provided for surgical pain. Surgical pain usually lasts for a period of 4-6 weeks. Narcotic medication includes Percocet, Vicodin, Darvocet, Tylenol #3 or Lortab. 2. Longer-term pain is more appropriately treated with non-narcotic medication such as Tylenol ES. 3. Muscle spasm is not appropriately treated with narcotics. Muscle relaxers such as Soma, Flexeril or Skelaxin can be used along with Tylenol ES. 4. Remember that we all live with some "aches and pains". This is not unusual or uncommon after an injury or as we get older. a. Back pain is expected and may include muscle spasms for 4 to 6 weeks after surgery. The pain should gradually improve. If the pain worsens for no apparent reason, please contact the office. b. Intermittent leg pain may also be experienced and should not be concerned about unless it worsens for no apparent reason. If so, please contact the office. 5. We will provide appropriate medication within the normal guidelines of their prescribed use. We will also be very cautious and aware of potential abuse and extended duration of patients' medication needs. a. Pain medications are for your comfort and to assist with sleep and rest so that the tissue can heal. They are not provided in order to return to normal activity and should not be used through the day. To do so or worsening pain at night can result from ongoing tissue damage and development of tolerance to the prescribed medicine. 6. Please allow 2-3 days to process refills. Prescriptions will not be mailed but must be picked up at the office. FOLLOW UP VISIT: Keep your scheduled follow-up appointment. Any questions, please call the office at . Pending Studies at Discharge: No Stand-Alone Forms: [facility], Smoking Cessation Medications and DC Order Prescriptions: New tramadol 50 mg tablet 50 mg PO Q6H PRN (Reason: pain, moderate) Qty: 30 0RF oxycodone 5 mg tablet 5 mg PO Q6H PRN (Reason: pain) Qty: 30 0RF Continued multivitamin Tablet 0.5 tab PO BID celecoxib [Celebrex] 200 mg Capsule 200 mg PO QAM gabapentin 600 mg Tablet 600 mg PO BID lisinopril-hydrochlorothiazide 20-12.5 mg Tablet 1 tab PO HS vitamin B complex Capsule 1 cap PO QAM fiber Capsule 1 cap PO QPM cholecalciferol (vitamin D3) [Vitamin D3] 125 mcg (5,000 unit) Tablet 125 mcg PO QAM turmeric 400 mg Capsule 400 mg PO QPM Probiotic (B. coagulans) 1 billion cell Tablet,Chewable 1 cell PO QAM Discharge Orders: Discharge Order (Routine); Ordered 10/18/22 Ordered By: Lauri Yang Admission Data Admit Date/Time: 10/15/22 14:44 Attending Provider: Lauri Yang Admit Provider: Lauri Yang Primary Care Provider: Evangelina Butts Other Providers: Chelita Bob ; Meng Melo
--- NOTE | 2022-10-18 11:53 | Hospitalist Progress Note ---
Date of Service October 18, 2022 Assessment & Plan (1) Neurogenic claudication due to lumbar spinal stenosis: Plan: POD#3 L4-S1 decompression and fusion by Dr. Yang Activity and wound care orders as per ortho Pain control with bowel regimen PT/OT Monitor H/H for acute blood loss anemia and transfuse blood products PRN, preop Hgb 13.2 EBL 200 cc (2) Hypertension: Plan: BP controlled, c/w home meds. DVT PROPHYLAXIS TEDs/SCDs as per spine Ortho Admission and Anticipated Discharge Date Admission Date: October 15, 2022 Subjective Patient seen and examined at bedside as a follow-up of medical management for spinal surgery for neurogenic claudication due to spinal stenosis. Patient was sitting up in chair, on room air, NAD, reports improvement in LLE radicular pain, reports improvement in operative site pain, reports eating okay, denies any other problems. Didn't have further lightheadedness. Ortho vitals obtained are negative. Physical Exam Physical Exam: GENERAL: Alert and oriented x3. NAD, on RA. HEENT: No pallor, no icterus. Pupils equal, round and reactive to light. Oral mucosa moist. NECK: No JVD, no neck masses. HEART: S1 and S2 heard. Regular rate and rhythm. No murmur, no gallop. RESPIRATORY SYSTEM: Normal AP diameter. No accessory muscle use. No wheezing, no crackles. ABDOMEN: Soft, bowel sounds present, nontender, no distention. CENTRAL NERVOUS SYSTEM: No facial droop. Speech is clear. Obeys simple commands. Moves extremities. EXTREMITIES: No edema, no erythema seen. Low back with clean dressing without soakage. Results & Data Results & Data Vital Signs (Past 12 Hours) Vital Signs Temp Pulse Resp BP Pulse Ox O2 Del Method 10/18/22 10:41 36.7 C 86 18 121/73 98 10/18/22 08:33 36.7 C 86 18 121/73 98 Room Air
== END 2022-10-18 11:11 | disposition home or self-care (01) | DRG 455 ==
LOC: ASU 10:03 → 3E 14:44